=== PATIENT | female | born 2005 | race Caucasian/White ===

== ENCOUNTER 2024-02-28 22:39 | Emergency (ER) | payer MEDICAID ==
[~2024-02-28] VITALS: Ht 170.2 cm; Wt 59.0 kg
[2024-02-28 22:45] VITALS: TEMP 98.4; O2SAT 100
[2024-02-29] MEDS: LORAZEPAM 0.5MG TABLET PO ONE (00:31)
[2024-02-29 01:04] VITALS: BP 102/64; PULSE 65; RESP 12; O2SAT 100
== END 2024-02-29 01:05 | disposition home or self-care (01) ==
LOC: ER 22:39
DX: F41.9 Anxiety disorder, unspecified (principal); R07.89 Other chest pain
CPT/HCPCS: 71045; 93005; 99283